=== PATIENT | male | born 1945 | race Caucasian/White ===

== ENCOUNTER 2022-01-24 12:07 | Outpatient (CLI) | payer MEDICARE, OTHER, SELFPAY | END 2022-01-24 12:08 | disposition home or self-care (01) | LOC: INJ CL 12:10 | PROVIDERS: PCP Family Medicine; Visit Provider Family Medicine | DX: M54.16 Radiculopathy, lumbar region (principal); M51.36 Other intervertebral disc degeneration, lumbar region | CPT/HCPCS: 64483; J1100; Q9966 ==

== ENCOUNTER 2024-11-04 09:17 | Outpatient (CLI) | payer MEDICARE, OTHER, SELFPAY | END 2024-11-04 09:18 | disposition home or self-care (01) | LOC: INJ CL 09:19 | PROVIDERS: PCP Family Medicine; Visit Provider Family Medicine | DX: M54.16 Radiculopathy, lumbar region (principal); M48.062 Spinal stenosis, lumbar region with neurogenic claudication; R29.898 Other symptoms and signs involving the musculoskeletal system | CPT/HCPCS: 64483; J1100; Q9966 ==

== ENCOUNTER 2024-11-11 20:43 | Emergency (ER) | payer MEDICARE, OTHER, SELFPAY ==
--- OUTSIDE RECORDS SUMMARY | 2024-11-11 20:46 | XMS_ITS | Clinical Summary ---
Author Organization [employer] [facility] Address [address] [place] [address] Care Team Providers Care Teacher Advisor Name Role Phone Juan C Mariano MD Primary Care Provider Car Mcqueen MD Unavailable Juan C Lagos DPM Unavailable [phone] Staff, Other Clinical Unavailable Unavailabl e Sunil Tang MD Unavailable Unavailable Allergies No known active allergies Medications ASPIRIN 81 MG CHEWABLE TAB chew 1 tablet (81mg) by oral route once daily 0 Active omega-3 fatty acids-vitamin E (FISH OIL) 1,000 mg Cap Take by mouth once daily. 0 0 Active multivitamin (MVI) tablet Take 1 tablet by mouth once daily. 0 0 Active hydroCHLOROthiazide 25 mg tabletIndications:E ssential hypertension Take 1 Tablet (25 mg) by mouth once daily. 90 Tablet 3 5 Active lisinopriL (PRINIVIL; ZESTRIL) 10 mg tabletIndications:E ssential hypertension Take 1 Tablet (10 mg) by mouth once daily. 90 Tablet 3 5 Active potassium chloride (KLOR-CON M20) 20 mEq extended-release tablet (part/cryst)Indicat ions:Essential hypertension Take 1 Tablet (20 mEq) by mouth once daily with a meal. 90 Tablet 3 5 Active simvastatin (ZOCOR) 20 mg tabletIndications:M ixed hyperlipidemia Take 1 Tablet (20 mg) by mouth once daily with evening meal. 90 Tablet 3 Active Active Problems Problem Noted Date Diagnosed Date Impaired cognition 09/18/2024 BPH without urinary obstruction 07/28/2022 Overweight 09/02/2021 RBBB 06/22/2015 S/P hip replacement 06/01/2014 GERD (gastroesophageal reflux disease) 4 Mixed hyperlipidemia 10/27/2009 Unspecified essential hypertension 10/27/2009 Benign neoplasm of colon 12/01/2008 Overview (06/21/2022): Colonoscopy 11/2008 polyps repeat in 3 years Colonoscopy 10/2011 polyps repeat in 5 years Colonoscopy 12/2016 diverticulosis repeat in 5 years Colonoscopy 05/2022 TA,SSA, repeat in 5 years Resolved Problems Problem Noted Date Diagnosed Date Resolved Date Depression, recurrent 08/10/20232024 S/P hip replacement 06/04/2014 06/22/20 15 Anticoagulation goal of INR 1.5 to 2.5 06/01/2014 06/01/2015 Subclinical hypothyroidism 10/27/2009 1 09/17/2017 Encounters Date Type Department Care Team Description 11/04/2024 10:00 AM CDT Office Visit [facility] [address] [place] [address] Josué Shen MD Procedure (Left L4-5 TFESI) 10/30/2024 Telephone [facility] [address] [place] [address] Josué Shen MD Results (MRI) 10/27/2024 8:00 AM CDT Ancillary Procedure [facility] [address] [place] [address] 10/27/2024 Travel 10/16/2024 8:40 AM CDT Office Visit [facility] [address] [place] [address] Josué Shen MD Musculoskeletal Problem (Follow up back pain ) 10/16/2024 Travel 09/18/2024 8:55 AM VETERANS SERVICE REPRESENTATIVE Office Visit [facility] [address] [place] [address] Juan C Mariano MD Medicare ANNUAL (subsequent) Visit (79 year old) 09/18/2024 Travel from Last 3 Months Immunizations Immunization Administration Dates Next Due Amb Influenza, Inact (High-d ose Quadrivalent) (Flu Clinic Only) 05/13/2020 COVID-19 vaccine (Moderna 50mcg/0.5mL) 12YO+ BIVALENT PF, MDV 06/09/2022 COVID-19 vaccine ([employer]-Bio NTech 30mcg/0.3mL) 12YO+ MAGDALENE-SUCROSE PF, MDV 11/09/2021 COVID-19 vaccine (Pfizer-Bio NTech 30mcg/0.3mL) PF, MDV 10/06/2020,09/15/2020 Influenza, High-dose Inactivated 024,06/03/2019,05/06/2018,2015,06/01/2015,06/04/2014 Influenza, High-dose Quadriv alent Inactivated 05/07/2023,05/02/2022,04/27/2021 Influenza, IIV3 (Age 6-35 mos) 05/09/2011 Influenza, IIV3 (Age >=3 years) 03/21/2012,05/09,04/19/2009 Influenza, Inactivated IIV3 (Age 65+ Years) Preserv Free 05/17/2017 Pneumococcal Conj 20-valent (Prevnar 20) 07/28/2022 Pneumococcal Poly,23-Valent (Pneumovax) 10/27/2009 Pneumococcal conj 13-Valent (Prevnar 13) 06/04/2014 Td (Age >=7 Years) 12/21/1997 Td, Preservative Free (age > = 7 Years) 10/23/2008 Tdap 06/09/2022,03/21/2012 Zoster (Shingrix-RZV, recombinant) 01/21/2019, Zoster (Zostavax-ZVL, live) 10/24/2006 Family History Medical History Relation Name Comments Other Brother Identical twin brother; cerebral aneurysm/ age 29 Heart Disease Mother after age 65, at 88. Cancer Neg. 1 colon/prostate Anesthesia Problem Neg. 2 Relation Name Status Comments Brother Father Mother Neg. 1 Neg. 2 Social History Tobacco Use Types Packs/Day Years Used Date Smoking Tobacco: Former Cigarettes 0.5 5 0 07/23/1964 - 07/23/1969 Smokeless Tobacco: Never Tobacco Cessation:Counseling Given: No Alcohol Use Standard Drinks/Week Comments No 0 (1 standard drink = 0.6 oz pur e alcohol) rare PHQ-2 Answer Date Recorded PHQ-2 TOTAL SCORE 2 09/18/2024 Social Connections Answer Date Recorded Do you often feel lonely or isolated from those around you? 0 09/18/2024 Financial Resource Strain Answer Date R ecorded Difficulty of Paying Living Expenses 3 09/18/2024 Difficulty of Paying Living Expenses Not on file 09/18/2024 Food Insecurity Answer Date Recorded Do you worry your food will run out before you are able to buy more? 1 09/18/2024 Transportation Needs Answer Date Record ed Does lack of transportation keep you from medica l appointments? 1 09/18/2024 Does lack of transportation keep you from work, meetings or getting things that you need? 1 09/18/2024 Housing Stability Answer Date Recorded What is your housing situation today? 1 09/18/2024 Utilities Answer Date Recorded Do you have trouble paying f or utilities (for example, heat, electricity, water, phone)? 1 09/18/2024 Sex and Gender Information Value Date Recorded Sex Assigned at Not on file Legal Sex Male 5:26 AM VETERANS SERVICE REPRESENTATIVE Gender Identity Not on file Sexual Orientation Not on file Occupation Industry Job Start Date Job End Date Li Not on file Not on file Not on file Obstetrics History Last Filed Vital Signs Vital Sign Reading Time Taken Comments Blood Pressure 132/75 10/16/2024 8:41 AM CDT Pulse 88 10/16/2024 8:41 AM CDT Temperature 36.4 C (97.6 F) 10/16/2024 8:41 AM CDT Respiratory Rate - - Oxygen Saturation 96% 10/16/2024 8:41 AM CDT Inhaled Oxygen Concentration - - Weight 102.4 kg (225 lb 12.8 oz) 09/18/2024 8:51 AM VETERANS SERVICE REPRESENTATIVE Height 181.2 cm (5' 11.34) 09/18/2024 8:[address] Body Mass Index 31.19 09/18/2024 8:51 AM VETERANS SERVICE REPRESENTATIVE Plan of Treatment Upcoming Encounters Date Type Department Care Team (Late st Contact Info) Description 01/16/2025 9:40 AM CDT Office Visit [facility] [address] [place] [address] Josué Shen MD [address] [place] [address] Health Maintenance Due Date Last Done Comments RSV vaccine for adults or (1 - 1-dose 75+ series) 2018 COVID-19 vaccine series ( season) 2024 05/02/2024, 06/18/2023, 06/09/2022, Additional history exists BMI (ht and wt on same day) for age 18+ 09/18/2025 09/18/2024, 08/10/2023, 07/28/2022, Additional history exists Depression screening for age 12+ 09/18/2025 09/18/2024, 08/10/2023, 07/28/2022, Additional history exists Medicare Wellness for age 65+ 09/19/2025, 08/10/2023, 07/28/2022, Additional history exists Tetanus booster 06/09/2032 06/09/2022, 02/22, 10/23/2008, Additional history exists Zoster (shingles) series for age 50+ Completed 01/21/2019, 11/11/2018, 10/24/2006 Tdap Completed 06/09/2022, 03/21/2012 Pneumococcal series for age 50+ Completed 07/28/2022, 06/04/2014, 10/27/2009 Influenza Vaccine Completed 05/26/2024, , 06/03/2019, Additional history exists Procedures Procedure Name Priority Date/Time Associated Diagnosis Comments AMB EPIDURAL STEROID INJECTION Routine 11/04/2024 12:00 AM CDT Lumbar radiculopathy Spinal stenosis of lumbar region with neurogenic claudication Lumbar spondylosis Lumbar facet arthropathy Left leg weakness MR SPINE LUMBAR WO Routine 10/27/2024 7: 54 AM CDT Lumbar radiculopathy Spinal stenosis of lumbar region with neurogenic claudication Lumbar spondylosis Lumbar facet arthropathy Left leg weakness PSA TOTAL Routine 09/18/2024 9:26 AM VETERANS SERVICE REPRESENTATIVE Prostate cancer screening LIPID PANEL W REFLEX MEASURED LDL Routine 09/18/2024 9:26 AM VETERANS SERVICE REPRESENTATIVE Mixed hyperlipidemia HEMOGLOBIN A1C Routine 09/18/2024 9:26 AM VETER[employer] SERVICE REPRESENTATIVE Prediabetes BASIC METABOLIC PANEL Routine 09/18/2024 9:26 AM VETERANS SERVICE REPRESENTATIVE Essential hypertension from Last 3 Months Results * AMB EPIDURAL STEROID INJECTION (11/04/2024 12:00 AM CDT) us Josué Shen MD NEUROLOGY ORD Final Resu lt * MR SPINE LUMBAR WO (10/27/2024 7:54 AM CDT) Anatomical Region Laterality Modality Spine, LUMBAR SPINE Magnetic Res onance 10/27/2024 2:12 PM CDT Impressions 10/27/2024 2:12 PM CDT 1. Multiple renal parenchymal hyperintensities, the largest on the right demonstrating increased nodular component. Recommend further CT or ultrasound characterization. 2. At L2-L3, similar mild spinal canal stenosis and mild-moderate left neural foraminal narrowing. 3. At L3-L4, similar moderate spinal canal stenosis. 4. At L4-L5, persistent but slightly decreased size of a far left lateral disc extrusion likely abutting the exiting L4 nerve root Dictated by Imtiaz Gallagher MD @ 10/27/2024 2:12:10 PM (Electronically Signed) Narrative 10/27/2024 2:12 PM CDT For Patients: As a result of the Century Cures Act, medical imaging exams and procedure reports are released immediately into your electronic medical record. You may view this report before your referring provider. If you have questions, please contact your health care provider. INDICATION: Lumbar radiculopathy, spinal stenosis. TECHNIQUE: Multisequence multiplanar MRI of the lumbar spine without the use of intravenous contrast. COMPARISON: MRI lumbar spine dated 11/21/2021. FINDINGS: Similar mild rightward upper lumbar curvature. Stable mild chronic anterior wedging of the T12 and L1 vertebral bodies. No T1 hypointense infiltrative lesion. Similar multilevel disc desiccation and height loss most pronounced at L2-L3. The conus medullaris terminates normally at the L1 level. Multiple bilateral circumscribed T2 hyperintense renal lesions, not adequately characterized, however the largest on the right with increased nodular component. T12-L1: Shallow symmetric disc bulge. No significant spinal canal or neural foraminal stenosis. L1-L2: Shallow symmetric disc bulge. No significant spinal canal or neural foraminal stenosis. L2-L3: Minimal degenerative retrolisthesis. Shallow symmetric disc bulge. Mild facet joint arthrosis. Similar mild spinal canal stenosis and mild-moderate left neural foraminal narrowing. No significant right neural foraminal narrowing. L3-L4: Symmetric disc bulge and endplate osteophytic ridging. Moderate facet joint arthrosis. Similar moderate spinal canal stenosis and mild bilateral neural foraminal narrowing. L4-L5: Symmetric disc bulge. Moderate facet joint arthrosis. Similar mild spinal canal stenosis and right neural foraminal narrowing. Slight decrease in size but persistent far left lateral disc extrusion likely abutting the exiting L4 nerve root (series 6, image 13 and series 16, image 14). L5-S1: Symmetric disc bulge. Moderate facet joint arthrosis. No significant spinal canal stenosis or right neural foraminal narrowing. Mild left neural foraminal narrowing. Procedure Note Sherif Gallagher MD - 10/27/2024 For Patients: As a result of the Century Cures Act, medical imagingexams and procedure reports are released immediately into your electronicmedical record. You may view this report before your referring provider.If you have questions, please contact your health care provider. INDICATION: Lumbar radiculopathy, spinal stenosis. TECHNIQUE: Multisequence multiplanar MRI of the lumbar spine without the use ofintravenous contrast. COMPARISON: MRI lumbar spine dated 11/21/2021. FINDINGS: Similar mild rightward upper lumbar curvature. Stable mild chronicanterior wedging of the T12 and L1 vertebral bodies. No T1 hypointenseinfiltrative lesion. Similar multilevel disc desiccation and height lossmost pronounced at L2-L3. The conus medullaris terminates normally at theL1 level. Multiple bilateral circumscribed T2 hyperintense renal lesions,not adequately characterized, however the largest on the right withincreased nodular component. T12-L1: Shallow symmetric disc bulge. No significant spinal canal orneural foraminal stenosis. L1-L2: Shallow symmetric disc bulge. No significant spinal canal or neuralforaminal stenosis. L2-L3: Minimal degenerative retrolisthesis. Shallow symmetric disc bulge.Mild facet joint arthrosis. Similar mild spinal canal stenosis andmild-moderate left neural foraminal narrowing. No significant right neuralforaminal narrowing. L3-L4: Symmetric disc bulge and endplate osteophytic ridging. Moderatefacet joint arthrosis. Similar moderate spinal canal stenosis and mildbilateral neural foraminal narrowing. L4-L5: Symmetric disc bulge. Moderate facet joint arthrosis. Similar mildspinal canal stenosis and right neural foraminal narrowing. Slightdecrease in size but persistent far left lateral disc extrusion likelyabutting the exiting L4 nerve root (series 6, image 13 and series 16,image 14). L5-S1: Symmetric disc bulge. Moderate facet joint arthrosis. Nosignificant spinal canal stenosis or right neural foraminal narrowing.Mild left neural foraminal narrowing. IMPRESSION: 1. Multiple renal parenchymal hyperintensities, the largest on the rightdemonstrating increased nodular component. Recommend further CT orultrasound characterization. 2. At L2-L3, similar mild spinal canal stenosis and mild-moderate leftneural foraminal narrowing. 3. At L3-L4, similar moderate spinal canal stenosis. 4. At L4-L5, persistent but slightly decreased size of a far left lateraldisc extrusion likely abutting the exiting L4 nerve root Dictated by Imtiaz Gallagher MD @ 10/27/2024 2:12:10 PM (Electronically Signed) us Josué Shen MD MR Final Resu lt * (ABNORMAL) HEMOGLOBIN A1C (09/18/2024 9:26 AM VETERANS SERVICE REPRESENTATIVE) HEMOGLOBIN A1C 5.8(H) <5.7 % of total Hgb [facility] Comment: For someone without known diabetes, a hemoglobin A1c value between 5.7% and 6.4% is consistent with prediabetes and should be confirmed with a follow-up test. For someone with known diabetes, a value <7% indicates that their diabetes is well controlled. A1c targets should be individualized based on duration of diabetes, age, comorbid conditions, and other considerations. This assay result is consistent with an increased risk of diabetes. Currently, no consensus exists regarding use of hemoglobin A1c for diagnosis of diabetes for children. Blood BLOOD SPECIMEN / Unknown 09/18/2024 9:26 AM VETERANS SERVICE REPRESENTATIVE 09/18/2024 9:27 AM VETERANS SERVICE REPRESENTATIVE Juan C Mariano MD CHEMISTRY Final Result [employer] [facility] [address] [place] [address], [facility] [address] [place] [address] * LIPID PANEL W REFLEX MEASURED LDL (09/18/2024 9:26 AM VETERANS SERVICE REPRESENTATIVE) [facility] Signature CHOLESTEROL, TOTAL 162 <200 mg/dL [facility] HDL CHOLESTEROL 58 > OR = 40 mg/dL [facility] TRIGLYCERIDES 105 <150 mg/dL [facility] LDL-CHOLESTEROL 84 mg/dL (calc) [facility] Comment: Reference range: <100 Desirable range <100 mg/dL for primary prevention; <70 mg/dL for patients with CHD or diabetic patients with > or = 2 CHD risk factors. LDL-C is now calculated using the Sebastian-Ilan calculation, which is a validated novel method providing better accuracy than the Friedewald equation in the estimation of LDL-C. Sebastian AUGUSTINE et al. SONNY. 2013;310(19): 5803-4781 (http://education.[employer].Diplopia/faq/NHM814) CHOL/HDLC RATIO 2.8 <5.0 (calc) [facility] NON HDL CHOLESTEROL 104 <130 mg/dL (calc) [facility] Comment: For patients with diabetes plus 1 major ASCVD risk factor, treating to a non-HDL-C goal of <100 mg/dL (LDL-C of <70 mg/dL) is considered a therapeutic option. Blood BLOOD SPECIMEN / Unknown 09/18/2024 9:26 AM VETERANS SERVICE REPRESENTATIVE 09/18/2024 9:27 AM VETERANS SERVICE REPRESENTATIVE Juan C Mariano MD CHEMISTRY Final Result Performing Organization Address [facility]/State/ZIP Co de Phone Number [employer] [facility] [address] [place] [address], [place] [phone] [facility] [address] [facility] [place] [place] [address] * PSA TOTAL (09/18/2024 9:26 AM VETERANS SERVICE REPRESENTATIVE) PSA, TOTAL 1.24 < OR = 4.00 ng/mL [facility] Comment: The total PSA value from this assay system is standardized against the WHO standard. The test result will be approximately 20% lower when compared to the equimolar-standardized total PSA (Shala Harvey). Comparison of serial PSA results should be interpreted with this fact in mind. This test was performed using the Siemens chemiluminescent method. Values obtained from different assay methods cannot be used interchangeably. PSA levels, regardless of value, should not be interpreted as absolute evidence of the presence or absence of disease. Blood BLOOD SPECIMEN / Unknown 09/18/2024 9:26 AM VETERANS SERVICE REPRESENTATIVE 09/18/2024 9:27 AM VETERANS SERVICE REPRESENTATIVE us Juan C Mariano MD CHEMISTRY Final Result Performing Organization Address [facility]/ZIP Co de Phone Number [employer] [facility] [address] [place] [address], [place] [phone] [facility] [address] [place] [address] * BASIC METABOLIC PANEL (09/18/2024 9:26 AM VETERANS SERVICE REPRESENTATIVE) GLUCOSE 98 65 - 99 mg/dL [facility] Comment: Fasting reference interval UREA NITROGEN (BUN) 20 7 - 25 mg/dL [facility] CREATININE 1.00 0.70 - 1.22 mg/dL [facility] EGFR 76 > OR = 60 mL/min/1. 73m2 [facility] BUN/CREATININE RATIO SEE NOTE: 6 - 22 (calc) [facility] Comment: Not Reported: BUN and Creatinine are within reference range. SODIUM 137 135 - 146 mmol/L [facility] POTASSIUM 4.2 3.5 - 5.3 mmol/L [facility] CHLORIDE 100 98 - 110 mmol/L [facility] CARBON DIOXIDE 29 20 - 32 mmol/L [facility] ELECTROLYTE BALANCE 8 7 - 17 mmol/L (calc) [facility] CALCIUM 9.4 8.6 - 10.3 mg/dL [facility] Blood BLOOD SPECIMEN / Unknown 09/18/2024 9:26 AM VETERANS SERVICE REPRESENTATIVE 09/18/2024 9:27 AM VETERANS SERVICE REPRESENTATIVE Juan C Mariano MD CHEMISTRY Final Result Performing Organization Address City/State/[facility] Co de Phone Number [facility] [address] [place] [address], [place] [phone] [facility] [address] [place] [address] from Last 3 Months Insurance MEDICA [employer]IME SOLUTION HB MEDICARE PART B HB ONLY MEDICA [employer]UTIONS MR PB ONLY Advance Directives Documents on File Type Date Recorded Patient Manager Distribution Expl anation Healthcare Directive 11/14/2011 2:30 PM Care Teams Teacher Advisor Relationship Specialty Start Date End Date Juan C Mariano MD [address] [place] [address] PCP - General 10/02/06 Car Mcqueen MD [address] [place] [address] Surgery - Orthopedics 11/02/11 Juan C Lagos DPM [address] [place] [address] Podiatry 11/02/11 Staff, Other Clinical . Dentistry - General 11/02/11 Sunil Tang MD . Ophthalmology Surgery 11/02/11
[2024-11-11 20:51] VITALS: BP 148/95; PULSE 87; RESP 18; TEMP 36.9; O2SAT 99; BMI 29.0
--- NOTE | 2024-11-11 20:57 | ED_ITS ---
HPI - General Adult General Chief complaint: Abdominal Pain Stated complaint: Pain on lower left abdominal area Time Seen by Provider: 11/11/24 20:45 History of Present Illness HPI narrative: CC: Lower Lower Groin/ Abdomen Pain, Chills pt. with pain all day. denies n/v, diarrhea, urinary symptoms, fevers. last bm 11/11--normal . 79-year-old man presenting to the emergency room with concern of pain in the lower left abdomen or groin area. No trauma noted. Has maybe felt chilled with this. No nausea no dysuria. Has not had a fever. Sounds like it does hurt to ambulate. Recent injection in his back -- 1 week ago. Did help with his back pain. No swelling noted. During conversation appears to defer to to spouse it appears and has some difficulty with recall. Has been urinating more frequently maybe Related Data Home Medications ?Medication ?Instructions ?Recorded ?Confirmed hydrochlorothiazide 25 mg tablet 25 mg PO DAILY 11/11/24 11/11/24 lisinopril 10 mg tablet 10 mg PO DAILY 11/11/24 11/11/24 potassium chloride 20 mEq 20 meq PO DAILY 11/11/24 11/11/24 tablet,extended release(part/cryst) simvastatin 20 mg tablet 20 mg PO DAILY 11/11/24 11/11/24 Allergies Allergy/AdvReac Type Severity Reaction Status Date / Time No Known Drug Allergies Allergy Verified 11/11/24 20:52 Review of Systems Status of ROS: Reports: 6 or more systems reviewed and unremarkable except as noted in History and below [facility] Social History Smoking Status: Never smoker Do you use any of these nicotine containing products: None How often do you have a drink containing alcohol: never AUDIT-C Alcohol total score: 0 Non-prescribed substance use: denies use Exam Narrative: Exam Narrative: Pleasant. Flatter affect. Hard of hearing and appears to struggle with recall. Reproducible pain left abductor/flexor musculature near the pelvic insertion. Hurts to straight leg raise the left leg. No pain to continue flexion once his knees bent. No abdominal pain, no swelling or erythema. No swelling of scrotal tissues. No palpable inguinal hernia. Site of back injection does not appear to discomfort or inflammation to palpation. Const: Vital Signs, click to edit/add: Vital Signs - 24 hr 11/11/24 20:51 11/11/24 22:37 11/11/24 22:37 Temperature 98.4 F 98.4 F 98.4 F Pulse Rate [Right Pulse Oximeter] 87 81 81 Respiratory Rate 18 18 18 Blood Pressure [Ri ght Upper Arm] 148/95 H 113/74 113/74 Pulse Oximetry 99 99 Oxygen Delivery Me thod Room Air Room Air Documenting provider has reviewed patient's vital signs: yes Course Vital Signs Vital signs: Initial Vital Signs Temperature 98.4 F 11/11/24 20:51 Temperature Source Temporal Artery Scan 11/11/24 20:51 Pulse Rate 87 11/11/24 20:51 Respiratory Rate 18 11/11/24 20:51 Blood Pressure 148/95 H 11/11/24 20:51 Blood Pressure Mean 112 H 11/11/24 20:51 Blood Pressure Position Sitting 11/11/24 20:51 Pulse Oximetry 99 11/11/24 20:51 Oxygen Delivery Method Room Air 11/11/24 20:51 Vital Signs Temperature 98.4 F 11/11/24 20:51 Pulse Rate 87 11/11/24 20:51 Respiratory Rate 18 11/11/24 20:51 Blood Pressure 148/95 H 11/11/24 20:51 Pulse Oximetry 99 11/11/24 20:51 Oxygen Delivery Method Room Air 11/11/24 20:51 Temperature 98.4 F 11/11/24 22:37 Pulse Rate 81 11/11/24 22:37 Respiratory Rate 18 11/11/24 22:37 Blood Pressure 113/74 11/11/24 22:37 Pulse Oximetry 99 11/11/24 22:37 Oxygen Delivery Method Room Air 11/11/24 22:37 Medical Decision Making MDM Narrative Medical decision making narrative: Since was some measure of chills would check for COVID influenza. Urinalysis for urinary tract infection. There may certainly be 2 things going on. I do not think the back is the source of discomfort. Perhaps pain is contribute to some sense of chills. Would image pelvis with x-ray of pelvis and hip looking for potential avulsion fracture other likely subtle finding. Pelvic x-ray does not show any avulsion fracture but with significant osteoarthritis of the left hip by my independent read. Marked osteoarthritis of the left hip. I am wondering if this might be referring somewhat as well however clearly reproducible pain on the upper inner hip flexors/adductors. Urinalysis is concentrated with some white cells small amount, on microscopy Radiology over-read below TECHNIQUE: Pelvis 1 view. COMPARISON: 10/08/2021. FINDINGS: No acute fracture or dislocation. Partially visualized right hip arthroplasty is unremarkable. Progression of left hip degenerative changes, now advanced with [id number] apposition. Scattered soft tissue calcifications. IMPRESSION: No acute osseous abnormality. Dictated by Deric Burger MD @ 11/11/2024 11:27:29 PM He feels that acetaminophen should be sufficient for pain management at this time. See patient discharge plan for further discussion See handout regarding icing and some stretches that you can begin for what I think is a groin strain. Follow-up in a week if not improved. Be seen sooner for fever, uncontrolled pain. A urine culture will be pending. We will call you if it looks like treatment is indicated. With a little food can take up to 600 mg of ibuprofen or up to 1000 mg of acetaminophen otherwise. These can be combined. Lab Data Lab results reviewed: Yes I reviewed the patient's lab results Labs: Lab Results 11/11/24 Range/Units 21:23 Urine Color Yellow (Yellow) Urine Appearance Clear (Clear) Urine pH 5.5 (5.0-8.5) Ur Specific [place] >= 1.030 (1.000-1.030) Urine Protein Negative (Negative) Urine Glucose (UA) Negative (Negative) Urine Ketones Trace A (Negative) Urine Blood Negative (Negative) Urine Nitrite Negative (Negative) Urine Bilirubin Negative (Negative) Urine Urobilinogen 0.2 (0.2-1.0) Ur Leukocyte Esterase Negative (Negative) Urine RBC 0-2 (0-2) Urine WBC 2-5 (0-5) Ur Squamous Epith Cells Few (None-Few) Urine Bacteria Few A (None) Urine Mucus Moderate A (None) SARS-CoV-2 (PCR) Negative SARS-CoV-2 (Negative) Influenza Type A (PCR) Negative PCR FLU A (Negative) Influenza Type B (PCR) Negative PCR FLU B (Negative) RSV (PCR) Negative PCR RSV (Negative) Discharge Plan Discharge Clinical Impression: Groin strain Patient Disposition: Home w/ Parent or Adult Condition: Stable Additional Instructions: See handout regarding icing and some stretches that you can begin for what I think is a groin strain. Follow-up in a week if not improved. Be seen sooner for fever, uncontrolled pain. A urine culture will be pending. We will call you if it looks like treatment is indicated. With a little food can take up to 600 mg of ibuprofen or up to 1000 mg of acetaminophen otherwise. These can be combined. Prescriptions: No Action simvastatin 20 mg tablet 20 mg PO DAILY Patient Comments: [NO ORIGINAL SIG] potassium chloride 20 mEq tablet,ER particles/crystals 20 meq PO DAILY lisinopril 10 mg tablet 10 mg PO DAILY Patient Comments: [NO ORIGINAL SIG] hydrochlorothiazide 25 mg tablet 25 mg PO DAILY Patient Comments: [NO ORIGINAL SIG] Follow Up/Referrals: Juan C Mariano MD [Primary Care Provider] - Stand Alone Forms: [email or web address] Info Instructions
--- NOTE | 2024-11-11 21:21 | CRLHL7_ITS ---
For Patients: As a result of the Cures Act, medical imaging exams and procedure reports are released immediately into your electronic medical record. You may view this report before your referring provider. If you have questions, please contact your health care provider. INDICATION: Pain. TECHNIQUE: Pelvis 1 view. COMPARISON: 10/08/2021. FINDINGS: No acute fracture or dislocation. Partially visualized right hip arthroplasty is unremarkable. Progression of left hip degenerative changes, now advanced with [id number] apposition. Scattered soft tissue calcifications. IMPRESSION: No acute osseous abnormality. Dictated by Deric Bruger MD @ 11/11/2024 11:27:29 PM (Electronically Signed)
[2024-11-11 21:35] LABS: Appearance Urine Clear (Clear); Bilirubin Urine Negative (Negative); Blood Urine Negative (Negative); Color Urine Yellow (Yellow); Glucose Urine Negative (Negative); Ketones Urine Trace (Negative); Leukocyte Esterase Urine Negative (Negative); Nitrite Urine Negative (Negative); Protein Urine Negative (Negative); Specific Gravity Urine >= 1.030 (1.000-1.030); Urobilinogen Urine 0.2 (0.2-1.0); pH Urine 5.5 (5.0-8.5)
--- OUTSIDE RECORDS SUMMARY | 2024-11-11 21:40 | XMS_ITS | Clinical Summary ---
Author Organization [employer] [facility] Address [address] [place] [address] Care Team Providers Care Barn Boss Name Role Phone Juan C Mariano MD Primary Care Provider Car Mcqueen MD Unavailable Juan C Lagos DPM Unavailable [phone] Staff, Other Clinical Unavailable Unavailabl e [...] Description 11/04/2024 10:00 AM CDT Office Visit [facility] [address] [place] [address] Josué Shen MD Procedure (Left L4-5 TFESI) 10/30/2024 Telephone [facility] [address] [place] [address] Josué Shen MD Results (MRI) 10/27/2024 8:00 AM CDT Ancillary Procedure [facility] [address] [place] [address] 10/27/2024 Travel 10/16/2024 8:40 AM CDT Office Visit [facility] [address] [place] [address] Josué Shen MD Musculoskeletal Problem (Follow up back pain ) 10/16/2024 Travel 09/18/2024 8:55 AM PLATING STRIPPER Office Visit [facility] [address] [place] [address] Juan C Mariano MD Medicare ANNUAL (subsequent) Visit (79 year old) 09/18/2024 Travel from Last 3 Months Immunizations Immunization Administration Dates Next Due Amb Influenza, Inact (High-d ose Quadrivalent) (Flu Clinic Only) 05/13/2020 COVID-19 vaccine (Moderna 50mcg/0.5mL) 12YO+ BIVALENT PF, MDV 06/09/2022 COVID-19 vaccine ([employer] NTech 30mcg/0.3mL) 12YO+ MAGDALENE-SUCROSE PF, MDV 11/09/2021 [...] on file Legal Sex Male 5:26 AM PLATING STRIPPER Gender Identity Not on file Sexual Orientation [...] (225 lb 12.8 oz) 09/18/2024 8:51 AM PLATING STRIPPER Height 181.2 cm (5' 11.34) 09/18/2024 8:[address] Body Mass Index 31.19 09/18/2024 8:51 AM PLATING STRIPPER Plan of Treatment Upcoming Encounters Date Type Department Care Team (Late st Contact Info) Description 01/16/2025 9:40 AM CDT Office Visit [facility] [address] [place] [address] Josué Shen MD [address] [place] [address] Health Maintenance Due Date Last Done Comments [...] weakness PSA TOTAL Routine 09/18/2024 9:26 AM PLATING STRIPPER Prostate cancer screening LIPID PANEL W REFLEX MEASURED LDL Routine 09/18/2024 9:26 AM PLATING STRIPPER Mixed hyperlipidemia HEMOGLOBIN A1C Routine 09/18/2024 9:26 AM PLATING STRIPPER Prediabetes BASIC METABOLIC PANEL Routine 09/18/2024 9:26 AM PLATING STRIPPER Essential hypertension from Last 3 Months Results [...] * (ABNORMAL) HEMOGLOBIN A1C (09/18/2024 9:26 AM PLATING STRIPPER) HEMOGLOBIN A1C 5.8(H) <5.7 % of total Hgb [facility] Comment: For someone without known diabetes, [...] BLOOD SPECIMEN / Unknown 09/18/2024 9:26 AM PLATING STRIPPER 09/18/2024 9:27 AM PLATING STRIPPER Juan C Mariano MD CHEMISTRY Final Result [facility] [address] [place] [address], [employer] [address] [place] [address] * LIPID PANEL W REFLEX MEASURED LDL (09/18/2024 9:26 AM PLATING STRIPPER) [facility] Signature CHOLESTEROL, TOTAL 162 <200 mg/dL [facility] HDL CHOLESTEROL 58 > OR = 40 mg/dL [facility] TRIGLYCERIDES 105 <150 mg/dL [facility] LDL-CHOLESTEROL 84 mg/dL (calc) [employer] [facility] Comment: Reference range: <100 Desirable range <100 mg/dL for primary prevention; <70 mg/dL for patients with CHD or diabetic patients with > or = 2 CHD risk factors. LDL-C is now calculated using the Sebastian-Ilan calculation, which is a validated novel method providing better accuracy than the Friedewald equation in the estimation of LDL-C. Sebastian AUGUSTINE et al. SONNY. 2013;310(19): 5734-6431 (http://education.Copperfasten.La Cartoonerie/faq/ZXV478) CHOL/HDLC RATIO 2.8 <5.0 (calc) [facility] NON HDL CHOLESTEROL 104 <130 mg/dL (calc) [facility] Comment: For patients with diabetes plus 1 major ASCVD risk factor, treating to a non-HDL-C goal of <100 mg/dL (LDL-C of <70 mg/dL) is considered a therapeutic option. Blood BLOOD SPECIMEN / Unknown 09/18/2024 9:26 AM PLATING STRIPPER 09/18/2024 9:27 AM PLATING STRIPPER Juan C Mariano MD CHEMISTRY Final Result Performing Organization Address [facility]/State/ZIP Co de Phone Number [facility] [address] [place] [address], [place] [phone] [employer] [address] [facility] [place] [address] * PSA TOTAL (09/18/2024 9:26 AM PLATING STRIPPER) PSA, TOTAL 1.24 < OR = 4.00 ng/mL [facility] Comment: The total PSA value from this assay system is standardized against the WHO standard. The test result will be approximately 20% lower when compared to the equimolar-standardized total PSA (Shala Ocate). Comparison of serial PSA results should be interpreted with this fact in mind. This test was performed using the Siemens chemiluminescent method. Values obtained from different assay methods cannot be used interchangeably. PSA levels, regardless of value, should not be interpreted as absolute evidence of the presence or absence of disease. Blood BLOOD SPECIMEN / Unknown 09/18/2024 9:26 AM PLATING STRIPPER 09/18/2024 9:27 AM PLATING STRIPPER us Juan C Mariano MD CHEMISTRY Final Result Performing Organization Address [facility]/ZIP Co de Phone Number [facility] [address] [place] [address], [place] [phone] [employer] [address] [place] [address] * BASIC METABOLIC PANEL (09/18/2024 9:26 AM PLATING STRIPPER) GLUCOSE 98 65 - 99 mg/dL [facility] Comment: Fasting reference interval UREA NITROGEN (BUN) 20 7 - 25 mg/dL [facility] CREATININE 1.00 0.70 - 1.22 mg/dL [facility] EGFR 76 > OR = [...] BLOOD SPECIMEN / Unknown 09/18/2024 9:26 AM PLATING STRIPPER 09/18/2024 9:27 AM PLATING STRIPPER Juan C Mariano MD CHEMISTRY Final Result Performing Organization Address City/State/[facility] Co de Phone Number [email or web address] [address] [place] [address], [place] [phone] [facility] [address] [place] [address] from Last 3 Months Insurance MEDICA PRIME SOLUTION HB MEDICARE PART B HB ONLY MEDICA PRIME SOLUTIONS MR PB ONLY Advance Directives Documents on File Type Date Recorded Patient Security Engineer Expl anation Healthcare Directive 11/14/2011 2:30 PM Care Teams Barn Boss Relationship Specialty Start Date End Date Juan C Mariano MD [address] [place] [address] PCP - General 10/02/06 Car Mcqueen MD [address] [place] [address] Surgery - Orthopedics 11/02/11 Juan C Lagos DPM [address] [place] [address] Podiatry 11/02/11 Staff, Other Clinical . Dentistry - General 11/02/11 Sunil Tang MD . Ophthalmology Surgery 11/02/11
[2024-11-11 21:56] LABS: Bacteria Urine Few; Mucus Urine Moderate; RBC Urine 0-2 (0-2); Squamous Epithelial Cell Urine Few (None-Few)
[2024-11-11 22:18] LABS: PCR FLU A Negative PCR FLU A (Negative); PCR FLU B Negative PCR FLU B (Negative); PCR RSV Negative PCR RSV (Negative); SARS PCR* Negative SARS-CoV-2 (Negative)
[2024-11-11 22:37] VITALS: BP 113/74; PULSE 81; RESP 18; TEMP 36.9; O2SAT 99
== END 2024-11-11 22:38 | disposition home or self-care (01) ==
PROVIDERS: Emergency Provider Family Medicine; PCP Family Medicine
DX: S76.812A Strain of other specified muscles, fascia and tendons at thigh level, left thigh, initial encounter (principal)
CPT/HCPCS: 72170; 81001; 87086; 87631; 99284

== ENCOUNTER 2025-01-27 10:38 | Day surgery (SDC) | payer MEDICARE, OTHER, SELFPAY ==
[2025-01-27] VITALS (20 sets, daily range): BP systolic 109–163; BP diastolic 59–82; PULSE 62–100; RESP 12–18; TEMP 35.9–36.6; O2SAT 91–100; BMI 29.7
[2025-01-27] MEDS: ACETAMINOPHEN 500 MG TABLET 1000 MG PO ×2 (10:45→18:49)
[2025-01-27] MEDS: CELECOXIB 200 MG CAPSULE PO (10:45)
[2025-01-27] MEDS: LACTATED RINGERS 1000 ML 1,000 ML 100 ML IV ×2 (10:45→15:52)
[2025-01-27] MEDS: OXYCODONE (CR) 10 MG TAB.ER.12H PO (10:45)
[2025-01-27] MEDS: SODIUM CHLORIDE 0.9 % (FLUSH) 10 ML SYRINGE IVF (11:11)
--- NOTE | 2025-01-27 12:45 | CRLHL7_ITS ---
For Patients: As a result of the Cures Act, medical imaging exams and procedure reports are released immediately into your electronic medical record. You may view this report before your referring provider. If you have questions, please contact your health care provider. Indication: Hip replacement surgery Technique: AP hip fluoroscopic images. Fluoroscopy time 53.7 seconds. Findings/Impression: Hardware from a left total hip arthroplasty is in satisfactory position. Dictated by Alexey Dang MD @ 01/28/2025 1:10:24 PM (Electronically Signed)
[2025-01-27] MEDS: MIDAZOLAM HCL 1 MG/ML inj IVP (13:15)
--- NOTE | 2025-01-27 13:27 | P.NB_ITS ---
Nerve Block Nerve Block Time Seen by Provider: 13:20 Date Seen: 01/27/25 Type of block requested by surgeon for post-operative analgesia: ADRIANO/LFCN Side: left Time out performed: Yes Verification of patient name: Yes Verification of date of : Yes Site marking: site marked Name of person performing procedure: Angel Continuous monitoring Was continuous monitoring of O2 sat, B/P, interior design professional, recorded every 15 minutes?: Yes Procedure Checklist: sterile prep, needles and gloves Ultrasound guided. Images saved: Yes Medications given in 5ml increments after negative aspiration: Ropivicaine %: 0.5 mL: 30 Needle gauge: 20 Precedex (mcg): 25 Patient tolerated procedure well: Yes Additional comments: Needle noted below psoas tendon needle noted adjacent to LFCN Block Charges Block Charge (with Pro Fee): Other Periph Nerve Block Use of Ultrasound Machine for Block: Yes- US Guidance/pain block
--- NOTE | 2025-01-27 13:27 | P.ANES_ITS ---
Anesthesia Charges Start Date/Time Anesthesia Start Date: 01/27/25 Anesthesia Start Time: 13:30 Stop Date/Time Anesthesia Stop Date: 01/27/25 Anesthesia Stop Time: 16:12 Summary Extremes of Age - Over 70 or under 1: MDA Coding CPT Codes CPT Codes: ANESTH HIP ARTHROPLASTY - 44714 ([id number]) P2 - PATIENT W/MILD SYST DISEASE, QK - STORAGE FACILITY RENTAL CLERK 2-4 CNCRNT ANES PROC, QX - SCALE MANAGER SVC W/ MD MED DIRECTION Additional Codes: Summary - Extremes of Age - Over 70 or under 1: MDA ([id number])
--- NOTE | 2025-01-27 13:27 | W.ANESCHARGE ---
Anesthesia Charges Start Date/Time Anesthesia Start Date: 01/27/25 Anesthesia Start Time: 13:30 Stop Date/Time Anesthesia Stop Date: 01/27/25 Anesthesia Stop Time: 16:12 Summary Extremes of Age - Over 70 or under 1: MDA Coding CPT Codes CPT Codes: ANESTH HIP ARTHROPLASTY - 73089 ([id number]) P2 - PATIENT W/MILD SYST DISEASE, QK - VALUE STREAM LEADER 2-4 CNCRNT ANES PROC, QX - OFFICE SERVICES REPRESENTATIVE SVC W/ MD MED DIRECTION Additional Codes: Summary - Extremes of Age - Over 70 or under 1: MDA ([id number])
--- NOTE | 2025-01-27 13:34 | P.ANES_ITS ---
Anesthesia Charges Start Date/Time Anesthesia Start Date: 01/27/25 Anesthesia Start Time: 13:30 Stop Date/Time Anesthesia Stop Date: 01/27/25 Summary Extremes of Age - Over 70 or under 1: SHOP TEACHER Coding CPT Codes CPT Codes: ANESTH HIP ARTHROPLASTY - 20813 ([id number]) P2 - PATIENT W/MILD SYST DISEASE, QK - COCOA MILLING MACHINE OPERATOR 2-4 CNCRNT ANES PROC, QX - SHOP TEACHER SVC W/ MD MED DIRECTION Additional Codes: Summary - Extremes of Age - Over 70 or under 1: SHOP TEACHER ([id number])
--- NOTE | 2025-01-27 13:34 | W.ANESCHARGE ---
Anesthesia Charges Start Date/Time Anesthesia Start Date: 01/27/25 Anesthesia Start Time: 13:30 Stop Date/Time Anesthesia Stop Date: 01/27/25 Summary Extremes of Age - Over 70 or under 1: ADULT PROBATION OFFICER Coding CPT Codes CPT Codes: ANESTH HIP ARTHROPLASTY - 15875 ([id number]) P2 - PATIENT W/MILD SYST DISEASE, QK - MORTICIAN SUPPLIES SALES REPRESENTATIVE 2-4 CNCRNT ANES PROC, QX - ADULT PROBATION OFFICER SVC W/ MD MED DIRECTION Additional Codes: Summary - Extremes of Age - Over 70 or under 1: ADULT PROBATION OFFICER ([id number])
[2025-01-27] MEDS: TRANEXAMIC ACID 100 MG/ML INJ 1000 MG IV (13:41)
--- NOTE | 2025-01-27 14:32 | PC.SOCIAL ---
Discharge planning: SW met with patient's in same day surgery to discuss home at discharge vs. SNF vs private pay enhanced assisted living. Patient's explains that it sounds like she will need to take him home, but would appreciate home PT/OT as it is difficult to get him out of the house. SW and explored long-term plan which is hopefully having patient remain in the home. SW discussed 3-day Medicare stay for SNF and is unsure that this will happen so it would then need to be private pay at that point. Patient's discussed that isn't necessarily a financial option so feels it would be best to take him home. Patient's explained that she does have support from her son that lives 4 miles away, but he also works full-time. discussed that she has another son that lives in [place] that can help occasionally. reports that she will make it work if he is medically ready for home tomorrow and has the list of homeworker agencies if she needs it. SW explained that she will meet with patient and in the morning after OT/PT complete their assessments to discuss the recommendations and set up home care at that time. had no other questions or concerns at this time.
--- NOTE | 2025-01-27 15:22 | CRLHL7_ITS ---
For Patients: As a result of the Cures Act, medical imaging exams and procedure reports are released immediately into your electronic medical record. You may view this report before your referring provider. If you have questions, please contact your health care provider. 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 Bone alignment is normal. No sign of acute fracture. Postop changes are within normal limits. Dictated by Alexey Dang MD @ 01/28/2025 1:11:02 PM (Electronically Signed)
--- NOTE | 2025-01-27 15:25 | PM.ORPRC ---
Procedure Note Date of procedure: 01/27/25 Procedure: PREOPERATIVE DIAGNOSIS: Left hip osteoarthritis POSTOPERATIVE DIAGNOSIS: Left hip osteoarthritis NAME OF OPERATION: Left total hip arthroplasty SURGEON: Peter Morales MD PAINTER HELPER SPRAY: Betina Harmon PA-C, GEORGE Felipe IMPLANTS: 1. [employer] Emigrant # [id number] sector ingrowth cup 2. 36 x 54 +4 neutral polyethylene 3. Actis # 7 standard collared ingrowth stem 4. 36 + 8.5 cobalt chrome femoral head ANESTHESIA: General ESTIMATED BLOOD LOSS: 350 cc COMPLICATIONS: None SPECIMENS: None DRAINS: None PREOPERATIVE ANTIBIOTICS: Ancef 2 grams INDICATIONS: The patient is a 79-year-old with a longstanding history of severe, unrelenting left hip pain secondary to end-stage left hip osteoarthritis. Despite appropriate nonoperative management, including activity modification, use of an assist device, anti-inflammatories, [id number] pain medication, physical therapy and injections, they continue to have pain and disability. Operative intervention was offered. The risks, benefits and expected outcomes were discussed in detail. These included but were not limited to: Infection, bleeding, injury to blood vessel or nerve, venous thromboembolism. All questions were answered to their satisfaction. Use of an home based assistant was necessary throughout the case for patient positioning and safety, soft tissue retraction and closure. PROCEDURE: The patient was placed supine on the [place] table. General anesthesia was administered. The home based assistant made sure the patient was properly positioned. The left hip was prepped and draped in the usual sterile fashion. The image intensifier was brought in for a perfect AP pelvis and a perfect double tear drop AP view of each hip which were used for intraoperative templating with our fluoroscopic guide. An oblique incision was made 3 cm distal and 3 cm lateral to the anterior superior iliac spine. The home based assistant retracted the soft tissues to protect them. Subcutaneous dissection was taken with electrocautery to the superficial fascia. The fascia was divided in line with the incision. Blunt dissection was carried medially to the tensor fascia claribel and sartorius interval. Deep dissection was carried with electrocautery. The circumflex vessels were cauterized and divided. The capsule was exposed and then divided in a T-fashion, tagged with #1 FiberWire sutures. Retractors were placed in the joint, held by the home based assistant. The corkscrew was placed in the femoral head. The neck cut was made in the subcapital region. We made a second neck cut more distal. The napkin ring of bone was removed. The femoral head was removed intact. Acetabular retractors were placed, held by the home based assistant. The labrum was sharply debrided. The capsule was released. The 43 mm reamer was used to the true medial wall. We then enlarged in 2 mm increments using the image intensifier for our reamer placement. We impacted the cup which had excellent purchase. We placed the polyethylene. Attention was then turned to the proximal femur. The limb was placed in 140 degrees of external rotation, maximum extension and adduction. A significant amount of time was spent releasing the capsule to allow us to deliver the femur into the wound and complete the femoral side safely. Retractors were held by the home based assistant throughout the femoral preparation. The box builder and canal finder were used. Broaches were used to a stable size. The calcar reamer was used. Trial components were placed. The hip was reduced and was found to be stable with appropriate soft tissue tension. Length and offset had been nicely restored using the image intensifier and our fluoroscopic guide. Trial components were removed. The stem was impacted. We placed the femoral head. Again, the hip was reduced and was found to be stable with appropriate soft tissue tension. Length and offset had been nicely restored. The home based assistant did a three minute dilute Betadine solution soak. The home based assistant irrigated the wound with 3 liters of normal saline via pulse lavage. The home based assistant repaired the anterior capsule with a #1 Vicryl and our previously placed Ethibond sutures. The home based assistant closed the fascia over the tensor fascia claribel with a #1 PDO Stratafix, subcutaneous tissues with 2-0 Vicryl, skin with a running 3-0 Stratafix and glue. A dry dressing was applied by the home based assistant. Sponge and needle counts were correct x 2. The patient tolerated the procedure well; there were no apparent complications. They were awakened and extubated in the operating room, sent to the Post-Anesthesia Care Unit in satisfactory condition. PLAN: 1. The patient will be mobilized with physical therapy, weight-bearing as tolerates 2. Xarelto x 5 days then aspirin x 30 days will be used for DVT prophylaxis 3. The patient will be discharged once medically appropriate
--- NOTE | 2025-01-27 16:25 | P.ANES_ITS ---
Anesthesia Charges Start Date/Time Anesthesia Start Date: 01/27/25 Anesthesia Start Time: 13:30 Stop Date/Time Anesthesia Stop Date: 01/27/25 Anesthesia Stop Time: 16:12 Summary Extremes of Age - Over 70 or under 1: ROUTING MACHINE OPERATOR Coding CPT Codes CPT Codes: ANESTH HIP ARTHROPLASTY - 78476 ([id number]) P2 - PATIENT W/MILD SYST DISEASE, QK - FILM PROCESSING UTILITY WORKER 2-4 CNCRNT ANES PROC, QX - ROUTING MACHINE OPERATOR SVC W/ MD MED DIRECTION Additional Codes: Summary - Extremes of Age - Over 70 or under 1: ROUTING MACHINE OPERATOR ([id number])
--- NOTE | 2025-01-27 16:25 | W.ANESCHARGE ---
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
--- NOTE | 2025-01-27 18:33 | PM.IMCN1 ---
Date of Consult Patient: Bina Patient Consult date: 01/27/25 Requesting Physician: Orthopedics Primary Care Provider: Juan C Mariano MD Consult Narrative Narrative: Jethro Alicea is a 79 year old male who underwent an elective left total hip arthroplasty today by Dr. Morales for end-stage osteoarthritis. There were no complications. He is doing well postoperatively. Pain is well controlled at this time. During the preoperative exam with his primary care provider on 01/20/2025, it was noted Had significant difficulty standing to move from the wheelchair to the exam table. Review of Systems Status of ROS: Reports: 6 or more systems reviewed and unremarkable except as noted in History and below [facility] Medical History (Updated 01/27/25 @ 19:22 by Stacie Shaver MD) Frailty ?R54 - Age-related physical debility (ICD-10) Mild cognitive impairment ?G31.84 - Mild cognitive impairment of uncertain or unknown etiology (ICD-10) Pre-diabetes ?R73.03 - Prediabetes (ICD-10) Overweight ?E66.3 - Overweight (ICD-10) Right bundle branch block ?I45.10 - Unspecified right bundle-branch block (ICD-10) BPH without urinary obstruction ?N40.0 - Benign prostatic hyperplasia without lower urinary tract symptoms (ICD-10) Mixed hyperlipidemia ?E78.2 - Mixed hyperlipidemia (ICD-10) HTN (hypertension) ?I10 - Essential (primary) hypertension (ICD-10) GERD (gastroesophageal reflux disease) ?K21.9 - Gastro-esophageal reflux disease without esophagitis (ICD-10) Surgical History (Updated 01/27/25 @ 19:18 by Stacie Shaver MD) Status post total hip replacement, left ?Z96.642 - Presence of left artificial hip joint (ICD-10) H/O colonoscopy ?Z98.890 - Other specified postprocedural states (ICD-10) S/P ACL reconstruction (2007) ?Z98.890 - Other specified postprocedural states (ICD-10) S/P tendon repair (09/2007) ?Z98.890 - Other specified postprocedural states (ICD-10) 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) ?S68.119A - Complete traumatic metacarpophalangeal amputation of unspecified finger, initial encounter (ICD-10) Status post right foot surgery (05/31/11) ?Z98.890 - Other specified postprocedural states (ICD-10) History of carpal tunnel surgery of left wrist (03/27/12) ?Z98.890 - Other specified postprocedural states (ICD-10) History of carpal tunnel surgery of right wrist (05/16/12) ?Z98.890 - Other specified postprocedural states (ICD-10) History of total right hip replacement (05/27/14) ?Z96.641 - Presence of right artificial hip joint (ICD-10) History of total left knee replacement (06/10/15) ?Z96.652 - Presence of left artificial knee joint (ICD-10) Family History (Updated 01/27/25 @ 19:13 by Stacie Shaver MD) Mother Cardiovascular disease Brother Cerebral aneurysm Social History (Updated 01/27/25 @ 19:12 by Stacie Shaver MD) Narrative: -Natalie Retired jimenez Former smoker ([id number]) Never used smokeless tobacco. Denies alcohol use. What is your current living situation?: I presently have a place to live Problems where you live: no known problems Problems where you live details: NA In the past 12 months, utilities in danger of being shut off: no In past 12 months, lack of transportation kept you from medical appts, meetings, work, or getting things needed for daily living: no In the past 12 mos, have been you worried that your food would run out before you had money to buy more?: never true In the past 12 mos, the food you bought just didn't last and you didn't have money to buy more?: never true Smoking Status: Former smoker What tobacco products do you use: cigarettes Smoking quit date/years: >15 years ago Do you use any of these nicotine containing products: None Second hand tobacco smoke exposure: No How often do you have a drink containing alcohol: monthly or less AUDIT-C Alcohol total score: 1 Non-prescribed substance use: denies use Caffeine: Yes How often does anyone, including family, friends and others, physically hurt you: never How often does anyone, including family, friends and others, insult or talk down to you: never How often does anyone, including family, friends and others, threaten you with harm: never How often does anyone, including family, friends and others, scream or curse at you: never Meds Home Medications and Allergies Home Medications ?Medication ?Instructions ?Recorded ?Confirmed ?Type hydrochlorothiazide 25 mg tablet 25 mg PO HS 11/11/24 01/27/25 History lisinopril 10 mg tablet 10 mg PO HS 11/11/24 01/27/25 History potassium chloride 20 mEq 20 meq PO DAILY 11/11/24 01/27/25 History tablet,extended release(part/cryst) simvastatin 20 mg tablet 20 mg PO DAILY 11/11/24 01/27/25 History aspirin 81 mg tablet 81 mg PO DAILY 12/22/24 01/27/25 History multivitamin 1 tab PO QDAY 12/22/24 01/27/25 History omega 3-gxa-whx-fish oil 100 1 cap PO DAILY 12/22/24 01/27/25 History mg-160 mg-1,000 mg capsule (Fish Oil) Allergies Allergy/AdvReac Type Severity Reaction Status Date / Time No Known Drug Allergies Allergy Verified 01/27/25 10:52 Exam Narrative: Exam Narrative: General: No acute distress. Awake alert oriented x3. HEENT: Normocephalic atraumatic, pupils equally round and reactive to light and accommodation. Oropharynx clear. Mucous membranes are moist. No cervical lymphadenopathy, thyromegaly or carotid bruits. No JVD. Cardiovascular: Regular rate and rhythm. No murmurs, gallops, or rubs. Chest: No increased work of breathing. Clear to auscultation bilaterally. No crackles or wheezes. Abdomen: Bowel sounds present. Soft, nondistended, nontender. No hepatosplenomegaly or masses. Extremities: Left hip bandage is clean, dry, and intact. Plethora of spider veins bilaterally in the lower extremities. 2+ bilateral ankle edema, no cyanosis or clubbing. Skin: No jaundice, no pallor, no rashes on visible skin. Const: Vital Signs, click to edit/add: Vital Signs - 24 hr 01/27/25 11:05 01/27/25 13:15 01/27/25 13:20 Temperature 97.9 F Pulse Rate 95 90 81 Pulse Rate [Pulse Oximeter] Respiratory Rate 18 18 18 Blood Pressure 163/82 H 150/79 H 150/82 H Blood Pressure [Ri ght Arm] Pulse Oximetry 98 100 100 Oxygen Delivery Me thod Room Air Nasal Cannula Nasal Cannula Oxygen Flow Rate 3 3 01/27/25 16:08 01/27/25 16:15 01/27/25 16:20 Temperature 96.6 F L Pulse Rate 80 76 71 Pulse Rate [Pulse Oximeter] Respiratory Rate 16 15 16 Blood Pressure 134/63 130/75 125/75 Blood Pressure [Ri ght Arm] Pulse Oximetry 98 94 96 Oxygen Delivery Me thod Room Air Oxygen Flow Rate 01/27/25 16:25 01/27/25 16:30 01/27/25 16:35 Temperature Pulse Rate 67 81 81 Pulse Rate [Pulse Oximeter] Respiratory Rate 14 16 14 Blood Pressure 127/76 114/75 128/79 Blood Pressure [Ri ght Arm] Pulse Oximetry 98 95 95 Oxygen Delivery Me thod Oxygen Flow Rate 01/27/25 16:40 01/27/25 16:49 01/27/25 17:00 Temperature 97.3 F L 96.7 F L Pulse Rate 78 Pulse Rate [Pulse Oximeter] 69 70 Respiratory Rate 16 12 Blood Pressure 124/75 Blood Pressure [Ri ght Arm] 129/73 121/71 Pulse Oximetry 94 95 91 Oxygen Delivery Me thod Room Air Room Air Oxygen Flow Rate 01/27/25 17:15 01/27/25 17:30 Temperature Pulse Rate Pulse Rate [Pulse Oximeter] 70 69 Respiratory Rate 14 14 Blood Pressure Blood Pressure [Ri ght Arm] 119/68 116/74 Pulse Oximetry 98 98 Oxygen Delivery Me thod Room Air Room Air Oxygen Flow Rate Assessment and Plan Assessment and plan (1) Status post total hip replacement, left: Problem comment: - 01/27/2025 Dr. Morales - Routine postop cares - VTE prophylaxis with 5 days of Xarelto then twice a day baby aspirin for 30 days. With h/o frailty, may be at risk for falls, evaluate with PT and OT tomorrow before discharge. Status: Acute (2) Osteoarthritis of left hip: Status: Chronic (3) Frailty: Problem comment: May complicate discharge home, PT and OT evaluation tomorrow before discharge Status: Chronic (4) Mild cognitive impairment: Status: Chronic (5) Mixed hyperlipidemia: Problem comment: Continue simvastatin Status: Chronic (6) HTN (hypertension): Problem comment: Blood pressure low normal today postoperatively, will hold lisinopril and hydrochlorothiazide for now Status: Chronic
--- NOTE | 2025-01-27 19:29 | PC.NURSE ---
Nursing Care Hours: [id number] Pt this shift calm and cooperative. Arrived from PACU awake but minimal vocal responses. Throughout recovery pt using yes and no answers. Was able to state where he lives and with who and after meal pt stated I am full. Denies pain. Bandage CDI, pedal pulses present. IV patent.
[2025-01-27] MEDS: CEFAZOLIN 2 GM in 0.9 % SODIUM CHLORIDE Mini-bag 100 ML IVPB (20:07)
[2025-01-27] MEDS: SENNOSIDES 1 TAB TABLET 2 TAB PO (21:03)
[2025-01-28] MEDS: ACETAMINOPHEN 500 MG TABLET 1000 MG PO ×2 (01:59→05:48)
[2025-01-28 04:00] VITALS: BP 134/82; PULSE 84; RESP 18; TEMP 36.4; O2SAT 96
[2025-01-28] MEDS: CEFAZOLIN 2 GM in 0.9 % SODIUM CHLORIDE Mini-bag 100 ML IVPB (04:11)
[2025-01-28] MEDS: 0.9 % SODIUM CHLORIDE 500 ML IV (05:51)
[2025-01-28] MEDS: LACTATED RINGERS 1000 ML 1,000 ML 75 ML IV (05:51)
[2025-01-28 07:00] VITALS: BP 146/84; PULSE 90; RESP 18; TEMP 36.2; O2SAT 96
--- NOTE | 2025-01-28 07:58 | PC.NURSE ---
This patient came into my care alert but not fully oriented. Could not tell me the year. He did know his hip was worked on but did not know if I knew about it and later that night believed it was something that happened in the distant past. His left hip incision area is covered with a clean dry intact bandage. Skin is cool to the touch but we have been consistently leaving an ice pack over this area. The skin is a little red in places. No swelling. The leg and foot are CMS intact. No swelling and pulses strong. Urinary retention at first. At that time he was drinking well when I prompted him to for medication. LR stopped at that time. Later he was urinating somewhat frequently but small amounts of highly concentrated urine. Very dark shan. My preceptor determined that a bolus and resumption of LR was the best course of action and this was fulfilled. When I first asked for him to try and urinate we used a rolling walker to get to the toilet to do so. This was a heavy two assist and it did not seem that he was not in a place to continue walking in such a way safely. Tremors of his arms and legs. When I transferred care of the patient he was in a stable state of health.
--- NOTE | 2025-01-28 08:36 | P.ORPN_ITS ---
Subjective Subjective Time Seen by Provider: 07:40 Date Seen: 01/28/25 Principal diagnosis: Status post left hip replacement Interval history: Jethro states his left hip feels better than prior to surgery. He will be discharging to a shelter facility versus home which will be determined with therapy and social work assistant. Ortho Exam Narrative Exam Narrative: Alert and oriented x3. Patient is in no acute distress. Converses without labored breathing. Hearing is grossly intact. Ambulates with a walker with assistance. Examination of the left hip shows the dressing is intact. Minimal edema. No erythema or warmth or sign of infection. Calves are soft and nontender. CMS intact left lower extremity. Const Vital Signs, click to edit/add: Vital Signs - 24 hr 01/27/25 11:05 01/27/25 13:15 01/27/25 13:20 Temperature 97.9 F Pulse Rate 95 90 81 Pulse Rate [Pulse Oximeter] Respiratory Rate 18 18 18 Blood Pressure 163/82 H 150/79 H 150/82 H Blood Pressure [Right Arm] Pulse Oximetry 98 100 100 Oxygen Delivery Method Room Air Nasal Cannula Nasal Cannula Oxygen Flow Rate 3 3 01/27/25 16:08 01/27/25 16:15 01/27/25 16:20 Temperature 96.6 F L Pulse Rate 80 76 71 Pulse Rate [Pulse Oximeter] Respiratory Rate 16 15 16 Blood Pressure 134/63 130/75 125/75 Blood Pressure [Right Arm] Pulse Oximetry 98 94 96 Oxygen Delivery Method Room Air Oxygen Flow Rate 01/27/25 16:25 01/27/25 16:30 01/27/25 16:35 Temperature Pulse Rate 67 81 81 Pulse Rate [Pulse Oximeter] Respiratory Rate 14 16 14 Blood Pressure 127/76 114/75 128/79 Blood Pressure [Right Arm] Pulse Oximetry 98 95 95 Oxygen Delivery Method Oxygen Flow Rate 01/27/25 16:40 01/27/25 16:49 01/27/25 17:00 Temperature 97.3 F L 96.7 F L Pulse Rate 78 Pulse Rate [Pulse Oximeter] 69 70 Respiratory Rate 16 12 Blood Pressure 124/75 Blood Pressure [Right Arm] 129/73 121/71 Pulse Oximetry 94 95 91 Oxygen Delivery Method Room Air Room Air Oxygen Flow Rate 01/27/25 17:15 01/27/25 17:30 01/27/25 18:00 Temperature Pulse Rate Pulse Rate [Pulse Oximeter] 70 69 62 Respiratory Rate 14 14 Blood Pressure Blood Pressure [Right Arm] 119/68 116/74 114/70 Pulse Oximetry 98 98 Oxygen Delivery Method Room Air Room Air Oxygen Flow Rate 01/27/25 18:30 01/27/25 19:00 01/27/25 20:00 Temperature 97.5 F L Pulse Rate Pulse Rate [Pulse Oximeter] 99 100 92 Respiratory Rate 18 16 Blood Pressure Blood Pressure [Right Arm] 124/59 L 109/60 120/67 Pulse Oximetry 93 95 Oxygen Delivery Method Room Air Room Air Oxygen Flow Rate 01/27/25 21:00 01/27/25 23:00 01/28/25 04:00 Temperature 97.4 F L 97.5 F L Pulse Rate Pulse Rate [Pulse Oximeter] 96 84 Respiratory Rate 16 16 18 Blood Pressure Blood Pressure [Right Arm] 112/66 134/82 Pulse Oximetry 96 96 96 Oxygen Delivery Method Room Air Room Air Room Air Oxygen Flow Rate 01/28/25 07:00 01/28/25 07:00 Temperature 97.2 F L Pulse Rate Pulse Rate [Pulse Oximeter] 90 Respiratory Rate 18 Blood Pressure Blood Pressure [Right Arm] 146/84 H Pulse Oximetry 96 96 Oxygen Delivery Method Room Air Room Air Oxygen Flow Rate Assessment and Plan Assessment and plan (1) Status post left hip replacement: Problem details: 01/27/2025Carmen Status: Acute Assessment and Plan: Plan for discharge is to home versus shelter facility and when they meets discharge criteria. Physical therapy and occupational therapy will work with him today. His states that she generally lifts him off the toilet and off of a chair at home prior to surgery. DVT prophylaxis upon discharge includes Xarelto 10mg daily for a total of 5 days, then Aspirin 81mg twice daily for 30 days. Remove dressing 1 week. Observe wound and phone Orthopedics with any questions or concerns Use Ice on operative hip unrestricted. Return to clinic in 7-10 days for a wound check Return to clinic in 6 weeks with surgeon Minimize narcotic use. Wean off and discontinue soon as possible. Activities as tolerated. No strenuous activity. Attend PT I have not yet sent orthopedic Scripts to a pharmacy. [facility] nurse will message me later today when a discharge location is planned.
[2025-01-28 09:06] LABS: Hematocrit 39.6 % (37.0-53.0); Hemoglobin* 13.0 gm/dL (13.5-17.5); Mean Corpuscular HGB Conc 33 gm/dL (32-36); Mean Corpuscular Hemoglobin 31 pg (26-34); Mean Corpuscular Volume 94 fL (80-100); Red Blood Count 4.23 m/uL (4.30-5.90); White Blood Count* 9.80 K/uL (4.50-11.00)
[2025-01-28 09:08] LABS: Slide Review Reflex No
[2025-01-28] MEDS: SENNOSIDES 1 TAB TABLET 2 TAB PO (09:15)
[2025-01-28] MEDS: RIVAROXABAN 10 MG TABLET PO (09:16)
[2025-01-28] MEDS: SIMVASTATIN 20 MG TABLET PO (09:17)
[2025-01-28 09:25] LABS: Chloride* 101 mmol/L (96-114); Potassium* 4.3 mmol/L (3.6-5.1); Sodium* 134 mmol/L (135-149)
[2025-01-28 09:28] LABS: Anion Gap 6 mEq/L (7-15); Blood Urea Nitrogen* 18 mg/dL (7-30); Calcium* 8.5 mg/dL (8.4-10.6); Carbon Dioxide* 27 mmol/L (20-32); Creatinine* 0.8 mg/dL (0.5-1.5); Est. Creatinine Clearance* 61.70; Estimated Glomerular Filt Rate 89 ml/min; Glucose* 121 mg/dL (60-115)
--- NOTE | 2025-01-28 10:52 | PC.SOCIAL ---
Addendum entered and electronically signed by Nila Naranjo LCSW 01/28/25 14:48: SW received call from [facility] stating that they are at capacity. SW sent referral to Home Health Care. Original Note: Discharging planning: SW met with patient and patient's to discuss home care PT/OT. SW explained that it would be someone coming into their home and that it is something they can turn away, however, it is a good thing to see how supportive they can be. SW provided list of agencies to choose from and patient's would like to start with a referral to [facility] and if they can't accept then, [facility] SW explained once an agency is found then SW will call them to inform them. After that they should receive a call from the agency directly. Patient and had no other questions or concerns at this time.
--- NOTE | 2025-01-28 11:39 | PC.NURSE ---
Discharge - Pt alert, oriented to self, place, and situation. Disoriented to time/date. Up with assist x1 and walker/gait belt, noted to have difficulty following verbal directions at times, but very pleasant and redirectable. Pt tolerating RA and regular diet/fluids. Pt denied pain, ice pack placed on surgical site. Dressing CDI, pedal pulse present. IV removed with catheter intact. D/C education given to pt and spouse with verbalized understanding. Pt d/c to home with spouse via wheelchair at approximately 1120.
--- NOTE | 2025-01-29 14:40 | PC.SOCIAL ---
Discharge planning: flume worker confirmed with [facility] today that they received the pt's home care referral. They stated they did and they are able to accept and will be reaching out to the pt's to schedule the intake appointment later today. flume worker called pt's to inform her of this update. Social work to follow-up as needed.
== END 2025-01-28 11:20 | disposition home or self-care (01) ==
LOC: MEDSURG 01-28 10:28 → SS 01-29 08:51 → MEDSURG 01-29 08:51
PROVIDERS: Internal Medicine; PCP Family Medicine; Visit Provider Orthopaedic Surgery
PROC: (CPT 27130; principal; 2025-01-27 12:45)
DX: M16.12 Unilateral primary osteoarthritis, left hip (principal); G89.18 Other acute postprocedural pain; R73.03 Prediabetes; E66.3 Overweight; I10 Essential (primary) hypertension; K21.9 Gastro-esophageal reflux disease without esophagitis; Z79.82 Long term (current) use of aspirin; G31.84 Mild cognitive impairment of uncertain or unknown etiology; R54 Age-related physical debility; E78.2 Mixed hyperlipidemia
CPT/HCPCS: 27130; 01214; 36415; 64450; 73501; 76000; 76942; 80048; 83735; 85027; 86850; 86900; 86901; 97110; 97116; 97162; 97165; 97535; 99100; A9270; C1776; J0690; J1100; J1171; J2250; J2405; J2704; J3010; J3490; J7030; J7120